=== PATIENT | female | born 1955 | race Caucasian/White ===

== ENCOUNTER 2017-05-06 23:39 | Inpatient (IN) | payer MEDICAID ==
[~2017-05-06] VITALS: Ht 157.5 cm; Wt 65.4 kg
[2017-05-06 23:59] VITALS: Ht 157.5 cm; Wt 65.4 kg
[2017-05-07] VITALS (7 sets, daily range): BP systolic 136–168; BP diastolic 50–68
[2017-05-07 00:53] LABS: BASOPHIL % 0.7 % (0-2); PLATELET COUNT 317 x10^3mcL (130-400)
[2017-05-07 00:55] LABS: RED CELL DISTRIBUTION WIDTH 15.3 % (11.5-14.5)
[2017-05-07 01:12] LABS: CALCIUM 8.3 mg/dL (8.5-10.1); CARBON DIOXIDE 28.1 mmol/L (21-32); CREATININE SERUM 3.2 mg/dL (0.6-1.0); POTASSIUM SERUM 3.7 mmol/L (3.5-5.1)
[2017-05-07] MEDS ORDERED: NOR10 (01:14)
[2017-05-07] MEDS ORDERED: COZAAR25 M1 PO (01:14)
[2017-05-07] MEDS ORDERED: FUROSEMIDE40 MG PO (01:14)
[2017-05-07] MEDS ORDERED: NOR10 PO (01:14)
[2017-05-07] MEDS ORDERED: SYLVANT100 MG IV (01:15)
[2017-05-07] MEDS ORDERED: LANTUS SOLOS100 U/M1 SQ (01:15)
[2017-05-07 01:17] LABS: BILIRUBIN TOTAL 0.41 mg/dL (0.20-1.00); TOTAL PROTEIN, SERUM 6.9 g/dL (6.4-8.2)
[2017-05-07 01:19] LABS: ALBUMIN 2.7 g/dL (3.4-5.0)
[2017-05-07 01:33] LABS: CK-MB 7.5 ng/mL (0-3.6)
[2017-05-07 02:52] LABS: CHOLESTEROL/HDL RATIO 3.5; MAGNESIUM 1.6 mg/dL (1.8-2.4); PHOSPHOROUS 2.9 mg/dL (2.5-4.9)
[2017-05-07 02:58] LABS: T3 TOTAL 1.13 ng/mL
[2017-05-07 03:00] LABS: FREE T4 1.35 ng/dL (0.76-1.46); FREE THYROXINE INDEX 3.3 ug/dL (1.4-4.5); T4(THYROXINE) 9.3 ug/dL (4.7-13.3)
[2017-05-07 06:07] LABS: UA SPECIFIC GRAVITY 1.015 (1.005-1.035); microscopic required? YES; urine erythrocyte TRACE (NEGATIVE)
[2017-05-08 04:10] VITALS: BP 145/50
[2017-05-08 06:21] LABS: BASOPHIL % 0.7 % (0-2); PLATELET COUNT 317 x10^3mcL (130-400)
[2017-05-08 06:24] LABS: RED CELL DISTRIBUTION WIDTH 14.8 % (11.5-14.5)
[2017-05-08 06:42] LABS: CALCIUM 8.3 mg/dL (8.5-10.1); CARBON DIOXIDE 31.2 mmol/L (21-32); CREATININE SERUM 2.6 mg/dL (0.6-1.0); PHOSPHOROUS 3.6 mg/dL (2.5-4.9); POTASSIUM SERUM 3.1 mmol/L (3.5-5.1)
[2017-05-08 11:00] VITALS: BP 131/51
[2017-05-08 14:26] VITALS: BP 127/49
[2017-05-08 17:57] VITALS: BP 123/57
[2017-05-08 21:17] VITALS: BP 131/54
[2017-05-09 05:54] VITALS: BP 131/53
[2017-05-09 07:03] LABS: BASOPHIL % 0.5 % (0-2); PLATELET COUNT 236 x10^3mcL (130-400)
[2017-05-09 07:21] LABS: CALCIUM 8.3 mg/dL (8.5-10.1); CARBON DIOXIDE 32.5 mmol/L (21-32); CREATININE SERUM 2.2 mg/dL (0.6-1.0); MAGNESIUM 1.7 mg/dL (1.8-2.4); PHOSPHOROUS 3.5 mg/dL (2.5-4.9); POTASSIUM SERUM 3.5 mmol/L (3.5-5.1)
[2017-05-09 07:36] LABS: RED CELL DISTRIBUTION WIDTH 14.6 % (11.5-14.5)
[2017-05-09 10:06] VITALS: BP 149/60
[2017-05-09] MEDS ORDERED: TAMIFLU6 MG/ML PO (14:56)
[2017-05-09] MEDS ORDERED: NEP PO (14:57)
[2017-05-09 18:00] VITALS: BP 131/48
[2017-05-09 20:37] VITALS: BP 131/53
[2017-05-10 05:42] VITALS: BP 136/53
[2017-05-10 07:47] LABS: BASOPHIL % 0.6 % (0-2); PLATELET COUNT 257 x10^3mcL (130-400)
[2017-05-10 08:02] LABS: CARBON DIOXIDE 30.8 mmol/L (21-32); CREATININE SERUM 3.2 mg/dL (0.6-1.0)
[2017-05-10 08:23] LABS: RED CELL DISTRIBUTION WIDTH 15.1 % (11.5-14.5)
[2017-05-10 09:07] VITALS: BP 131/90
[2017-05-10 10:49] LABS: PHOSPHOROUS 4.5 mg/dL (2.5-4.9)
[2017-05-10 13:32] VITALS: BP 118/73
[2017-05-10 21:05] VITALS: BP 132/37
[2017-05-11 09:05] VITALS: BP 130/59
[2017-05-11 09:34] VITALS: BP 132/37
== END 2017-05-11 14:25 | disposition home health service (06) | DRG 113 ==
LOC: ED 23:39 → DU 05-07 02:10 → EDBEDREQ 05-07 02:26 → DU 05-07 02:58 → MU 05-09 09:08
PROVIDERS: Emergency Medicine; Family Medicine; Internal Medicine Nephrology
DX: J11.1 Influenza due to unidentified influenza virus with other respiratory manifestations (principal); N17.0 Acute kidney failure with tubular necrosis; I12.0 Hypertensive chronic kidney disease with stage 5 chronic kidney disease or end stage renal disease; N18.6 End stage renal disease; D68.69 Other thrombophilia; E11.59 Type 2 diabetes mellitus with other circulatory complications; E11.65 Type 2 diabetes mellitus with hyperglycemia; J84.10 Pulmonary fibrosis, unspecified; E83.42 Hypomagnesemia; K59.00 Constipation, unspecified; E03.9 Hypothyroidism, unspecified; D64.9 Anemia, unspecified; Z99.2 Dependence on renal dialysis; Z68.27 Body mass index [BMI] 27.0-27.9, adult
CPT/HCPCS: 83880; 84439; 87804; 94150; J1644; J1815; J2405; J3475; J7030; J7620; Q0092

== ENCOUNTER 2018-06-29 02:13 | Inpatient (IN) | payer MEDICAID ==
[~2018-06-29] VITALS: Ht 152.4 cm; Wt 71.8 kg
[~2018-06-29 02:13] MED LIST: AURYXIA1 GM PO; COZAAR25 M1 PO; FERROUS SULFAT325 M2; FUROSEMIDE40 MG PO; HUMALOG100 UNIT/1; LANTUS SOLOS100 U/M1 SQ; NEP PO; NOR10; NOR10 PO; PHOS PO; SIMVASTATIN40 M1; SYLVANT100 MG IV; TAMIFLU6 MG/ML PO
[2018-06-29 02:21] VITALS: Ht 152.4 cm; Wt 71.8 kg
--- NOTE | 2018-06-29 02:37 | NUR ---
RECEIVED A 63 Y/O F FOR GENERALIZED ABDOMINAL PAIN AND BILATERAL LEG SWELLING SINCE FRIDAY. PT WAS NOT ABLE TO FINISH HER DIALYSIS LAST FRIDAY AND WAS SENT TO [facility]. PT ALSO REPORTS ORTHOPNEA. PT AAOX4. RESP EVEN AND UNLABORED. REPORTS ABDOMINAL PAIN 11/21. FAMILY AT THE BEDSIDE. WILL CONTINUE TO MONITOR FOR SAFETY
--- NOTE | 2018-06-29 02:48 | NUR ---
DR LOMELI AT THE BEDSIDE FOR MSE
[2018-06-29 03:14] LABS: BASOPHIL % 0.4 % (0-2); UA SPECIFIC GRAVITY 1.015 (1.005-1.035); microscopic required? YES; urine erythrocyte TRACE (NEGATIVE)
[2018-06-29 03:46] LABS: PLATELET COUNT 89 x10^3mcL (130-400); RED CELL DISTRIBUTION WIDTH 21.8 % (11.5-14.5)
[2018-06-29 03:56] LABS: rbc morphology (normal/abnorm) ABNORMAL (NORMAL)
[2018-06-29 04:03] LABS: BILIRUBIN TOTAL 1.28 mg/dL (0.20-1.00); CALCIUM 9.7 mg/dL (8.5-10.1); CARBON DIOXIDE 33.3 mmol/L (21-32); POTASSIUM SERUM 4.3 mmol/L (3.5-5.1)
[2018-06-29 04:09] LABS: CREATININE SERUM 6.1 mg/dL (0.6-1.0)
--- NOTE | 2018-06-29 04:22 | NUR ---
PT RESTING IN ED GURNEY IN POSITION OF COMFORT. PT IS A/O X4. PT RESPS ARE E/U. NO ACD NOTED
--- NOTE | 2018-06-29 04:58 | NUR ---
GAVE PT REPORT TO ELADIO STARK ON TELE FLOOR TO ASSUME PRIMARY CARE ONCE PT IS ADMITTED UPSTAIRS TO ROOM 207B.
--- NOTE | 2018-06-29 05:12 | NUR ---
PT MEDICATED PER EMAR ORDERS OF LASIX 40MG IVP.
--- NOTE | 2018-06-29 05:39 | NUR ---
PT WHEELED OUT OF ED VIA ED BRANT BY MYSELF AND STEPHEN STARK TO TELE FLOOR ROOM 207B WHERE PT WILL BE FOR FURTHER CARE. NO INCIDENCE NOTED
--- NOTE | 2018-06-29 05:48 | NUR ---
PT RECIEVED FROM ED VIA GUERNEY, PT IS DROWSY AND ALERT TO PERSON HOWEVER DUE TO ED GIVEN ATIVAN BEFORE COMING TO THE FLOOR PT IS UNABLE TO ANSWER QUESTIONS DUE TO DROWSINESS. NO JVD NOTED. PT HAS +1 PITTING EDEMA TO THE BLE, LEFT AV SHUNT NOTED ON THE LEFT UPPER EXTREMITY, SCDS IN THE ROOM. ABD IS ROUND AND SOFT, DISTENDED, LUNGS ARE CLEAR TO THE UPPER LOBES BUT DIMINISHED BILATERAL BASES, SKIN IS INTACT, UNABLE TO ASSESS LAST BM OR VOID, TELE [address] WITH NSR WITH PVC'S, PT IS ON 2L O2 VIA NC, PULSES ARE PALPABLE AND MODERATE TO THE BUE AND WEAK TO THE BLE, GENERALIZED WEAKNESS NOTED, IV 22 G TO THE RIGHT AC. SAFETY AND COMFORT MEASURES IMPLEMENTED, CALL LIGHT WITHIN REACH, WILL ENDORSE CONTINUITY OF CARE TO THE ONCOMING RN.
[2018-06-29 05:53] VITALS: BP 114/54
[2018-06-29 06:54] LABS: CHOLESTEROL/HDL RATIO 3.4
--- NOTE | 2018-06-29 08:00 | NUR ---
LETHARGIC AND ORIENTED TO PERSON,OTHERS AND PLACE, DENIES ANY PAIN. ASSIST TO BR. TELE # 16 SR W PVC'S. NO S/S PAIN. NS 10 CC HOUR INFUSING TO RT AC. BREAKFAST AT BEDSIDE. CALL LIGHT WITHIN REACH.
[2018-06-29 09:22] VITALS: BP 120/60
--- NOTE | 2018-06-29 13:49 | NUR ---
RESTING COMFORTABLY. ON02 2L NC. CALL LIGHT GREGORIO HOPKINS.
[2018-06-29 14:13] VITALS: BP 142/49
--- NOTE | 2018-06-29 15:25 | NUR ---
HD NURSE TO PERFORM HEMODIALYSIS.
[2018-06-29 16:43] VITALS: BP 108/48
--- NOTE | 2018-06-29 19:25 | NUR ---
PT RECEIVED A/O X4, EQUATORIAL GUINEAN SPEAKING, ABLE TO MAKE NEEDS KNOWN. TELE #16, DENIES ANY CP/PRESSURE AT THIS TIME. PULSES PALPABLE, BLE EDEMA PRESENT. LUNG SOUNDS DIM TO DIOGO BASES, BREATHING IS EVEN AND UNLABORED ON 2L NC, NO RESP DISTRESS NOTED. ABD SOFT AND ROUND, BOWEL TONES ACTIVE X4 QUAD, ADMITS TO N/V, EMESIS BAG PROVIDED, WILL MEDICATE WITH PRN ANTIEMETIC. VOIDS FREELY, BRP. PT HAS HD TuThSAT. AV SHUNT TO JORGE WITH GOOD BRUIT AND THRILL, DRESSING CDI. LAST HD-TODAY, 3L OUTPUT. GENERALIZED WEAKNESS, AMBULATORY. SKIN IS WARM AND DRY, INTACT. PT DENIES ANY PAIN AT THIS TIME. IVF INFUSING WELL TO RAC, SITE WNL. BED IN LOWEST SETTING, SIDE RAILS UP X2, CALL LIGHT WITHIN REACH. WILL CONT TO MONITOR.
--- NOTE | 2018-06-29 19:35 | NUR ---
PT C/O N/V, PRN ZOFRAN IVP GIVEN ORDERED. NO ACUTE DISTRESS NOTED. WILL CONT TO MONITOR.
--- NOTE | 2018-06-29 19:48 | NUR ---
PT HAD NAUSEA AT CHANGE OF SHIFT. NO C/O PAIN. NO SOB. NOC SHIFT TO MEDICATE FOR NAUSEA. GAVE BAG. CALL LIGHT WITHIN REACH. HD TODAY 3L OUT. TOLERATED WELL. MINIMAL ASSIST W BRP.
[2018-06-29 21:22] VITALS: BP 129/55
--- NOTE | 2018-06-29 23:28 | NUR ---
HD ORDERED FOR TOMORROW AM. DIALYSIS NURSE-BRAGA CALLED, CALL BACK NUMBER AND VOICE MESSAGE LEFT.
--- NOTE | 2018-06-30 01:08 | NUR ---
RECEIVED CALL BACK FROM OMI-DIALYSIS NURSE. OMI MADE AWARE THAT PT HAS AN ORDER FOR HD IN THE AM.
--- NOTE | 2018-06-30 03:50 | NUR ---
PT C/O 8 HEADACHE, PRN TYLENOL GIVEN ORDERED. PT ALSO C/O ITCHINESS, DR SCHOFIELD MADE AWARE. AWAITING ORDERS AT THIS TIME. NO ACUTE DISTRESS NOTED. CALL LIGHT WITHIN REACH. WILL CONT TO MONITOR.
--- NOTE | 2018-06-30 04:21 | NUR ---
PT C/O ITCHINESS, BENADRYL PO GIVEN ORDERED. NO ACUTE DISTRESS NOTED. WILL CONT TO MONITOR.
[2018-06-30 05:41] VITALS: BP 135/87
[2018-06-30 06:19] LABS: IRON 35 ug/dL (50-170)
[2018-06-30 06:23] LABS: TOTAL IRON BINDING CAPACITY 150 ug/dL (250-450)
[2018-06-30 06:25] LABS: CALCIUM 8.9 mg/dL (8.5-10.1); CARBON DIOXIDE 32.6 mmol/L (21-32); POTASSIUM SERUM 4.6 mmol/L (3.5-5.1)
[2018-06-30 06:26] LABS: CREATININE SERUM 4.6 mg/dL (0.6-1.0)
--- NOTE | 2018-06-30 06:33 | NUR ---
PT SLEPT WELL THROUGHOUT THE EVENING. BREATHING IS EVEN AND UNLABORED, NO RESP DISTRESS NOTED. PT DENIES HAVING ANY PAIN AT THIS TIME. PT REPORTS GOOD RELIEF FROM BENADRYL, PT DENIES HAVING ITCHINESS. NO EPISODES OF N/V NOTED. ALL NEEDS MET. IV TO RAC, PATENT AND INTACT, SITE WNL. ALL NEEDS MET. CALL LIGHT WITHIN REACH. WILL ENDORSE CARE TO AM NURSE.
[2018-06-30 06:34] LABS: BASOPHIL % 0.4 % (0-2); PLATELET COUNT 70 x10^3mcL (130-400); RED CELL DISTRIBUTION WIDTH 23.4 % (11.5-14.5)
--- NOTE | 2018-06-30 07:15 | NUR ---
RECEIVED PT FROM INSURANCE TERRITORY MANAGER. PT AWAKE, ALERT. A/OX 4. PT ON 2L NC, NO RESP DISTRESS NOTED. LUNG SOUNDS DIMINSHED AT THE BASES. PT ON TELE # 16. DENIES CHEST PAIN. ACTIVE BOWEL SOUNDS NOTED. PT AMBULATORY WITH BRP. PT HAS JORGE AV SHUNT AND IV ACCESS TO RIGHT AC. C/D/I. PERIPHERAL PULSES PALPABLE, SLIGHT EDEMA NOTED TO BLE. PT CALM AND COOPERATIVE AT THIS TIME. DENIES NAUSEA OR VOMITING. SAFETY MEASURES IN PLACE. BED LOW AND LOCKED. CALL LIGHT WITHIN REACH.
--- NOTE | 2018-06-30 07:20 | NUR ---
PT IN NO ACUTE DISTRESS. BEDSIDE REPORT GIVEN TO KEIRY STARK. ALL QUESTIONS AND CONCERNS ADDRESSED.
[2018-06-30 08:10] VITALS: BP 127/50
--- NOTE | 2018-06-30 09:00 | NUR ---
IV REMOVED FROM LEFT FOREARM WITH CATHETER INTACT. PER PT IV WAS PAINFUL TO THE TOUCH. MILD ERRYTHEMA NOTED, NO BLEEDING OR SWELLING NOTED. WILL ATTEMPT NEW IV.
--- NOTE | 2018-06-30 12:45 | NUR ---
PT RECEIVING HEMODIALYSIS AT THIS TIME. PT FEELING ANXIOUS WITH HD. HD NURSE AWARE, PER HD NURSE HD WILL BE SHORTER TODAY AND PT WILL HAVE HD AGAIN TOMORROW DUE TO NOT TOLERATING TREATMENT WELL. WILL CONT TO MONITOR.
[2018-06-30 12:52] VITALS: BP 120/51
--- NOTE | 2018-06-30 13:50 | NUR ---
PT FINISHED WITH HEMODIALYSIS, NO ACUTE DISTRESS OR DISCOMFORT NOTED AT THIS TIME. 3 LITERS OUT PER HD NURSE, BP 146/60. WILL CONTINUE TO MONITOR.
--- NOTE | 2018-06-30 13:58 | NUR ---
ATTEMPTED FOR PHYSICAL THERAPY EVAL, PATIENT ON DIALYSIS. TO BE SEEN THE FOLLOWING DAY
--- NOTE | 2018-06-30 15:33 | NUR ---
NEW IV STARTED RIGHT HAND 22G. PT ALLERGIC TO LATEX. IV WITH PAPER TAPE. C/D/I
--- NOTE | 2018-06-30 17:26 | NUR ---
DUE MEDS ADMINISTERED. PT AWAKE, ALERT SITTING ON THE BED IN NO ACUTE DISTRESS OR DISCOMFORT. SAFETY MAINTAINED.
[2018-06-30 17:36] VITALS: BP 131/51
--- NOTE | 2018-06-30 18:25 | NUR ---
PT RESTING COMFORTABLY IN BED AT THIS TIME. NO ACUTE DISTRESS OR DISCOMFORT NOTED. ALL NEEDS TENDED TO THROUGHOUT SHIFT. PT STABLE AT THIS TIME. WILL CONTINUE TO MONITOR AND ENDORSE TO SEWER BRICKLAYER. SAFETY MEASURES MAINTAINED.
--- NOTE | 2018-06-30 18:45 | NUR ---
PT COMPLAINING OF CONSTIPATION AT THIS TIME. DR SCHOFIELD AWARE, WILL ORDER NEW MEDICATION FOR BOWEL MOVEMENT.
--- NOTE | 2018-06-30 19:12 | NUR ---
PT RECEIVED A/O X4, AFGHAN SPEAKING, ABLE TO MAKE NEEDS KNOWN. TELE #16, DENIES ANY CP/PRESSURE AT THIS TIME. PULSES PALPABLE, BLE EDEMA PRESENT. LUNG SOUNDS DIM TO DIOGO BASES, BREATHING IS EVEN AND UNLABORED ON 2L NC, NO RESP DISTRESS NOTED. ABD SOFT AND ROUND, BOWEL TONES ACTIVE X4 QUAD, DENIES N/V. VOIDS FREELY, BRP. PT HAS HD TuThSAT. AV SHUNT TO JORGE WITH GOOD BRUIT AND THRILL, DRESSING CDI. LAST HD-TODAY, 3L OUTPUT. GENERALIZED WEAKNESS, AMBULATORY. SKIN IS WARM AND DRY, INTACT. PT DENIES ANY PAIN AT THIS TIME. IVF INFUSING WELL TO , SITE WNL. BED IN LOWEST SETTING, SIDE RAILS UP X2, CALL LIGHT WITHIN REACH. WILL CONT TO MONITOR.
[2018-06-30 20:24] VITALS: BP 135/48
--- NOTE | 2018-06-30 20:43 | NUR ---
DULCOLAX SUPPOSITORY GIVEN ORDERED FOR CONSTIPATION. PT TOLERATED WELL. WILL CONT TO MONITOR.
--- NOTE | 2018-06-30 22:05 | NUR ---
PT HAD BM X1, SMALL, FORMED AND HARD. NO ACUTE DISTRESS NOTED. WILL CONT TO MONITOR.
--- NOTE | 2018-06-30 22:24 | NUR ---
PT HAS DIALYSIS ORDERS FOR TOMORROW. BRAGA-DIALYSIS NURSE CALLED, LEFT MESSAGE AND CALL BACK NUMBER.
[2018-07-01 05:51] VITALS: BP 140/53
--- NOTE | 2018-07-01 06:33 | NUR ---
PT SLEPT AT INTERVALS THROUGHOUT THE EVENING. BREATHING IS EVEN AND UNLABORED, NO RESP DISTRESS NOTED. PT DENIES HAVING ANY PAIN AT THIS TIME. ICE CHIPS GIVEN PER PT'S REQUEST. NO ACUTE CHANGES ENCOUNTERED DURING SHIFT. IV TO RH, PATENT AND INTACT. ALL NEEDS MET. CALL LIGHT WITHIN REACH. WILL ENDORSE CARE TO AM NURSE.
[2018-07-01 06:37] LABS: CALCIUM 8.7 mg/dL (8.5-10.1); CARBON DIOXIDE 31.1 mmol/L (21-32); CREATININE SERUM 3.3 mg/dL (0.6-1.0); POTASSIUM SERUM 4.4 mmol/L (3.5-5.1)
[2018-07-01 06:38] LABS: MAGNESIUM 1.9 mg/dL (1.8-2.4)
[2018-07-01 07:02] LABS: BASOPHIL % 0.3 % (0-2); PLATELET COUNT 67 x10^3mcL (130-400); RED CELL DISTRIBUTION WIDTH 22.9 % (11.5-14.5)
--- NOTE | 2018-07-01 08:00 | NUR ---
SHIFT ASSESSMENT DONE. PATIENT A/A/OX3. TELUGU SPEAKING. BREATHING SOUND CLEAR DIOGO. O2 SAT 98% ON 2L VIA N/C. TELE#16; SA; HR = 63. DENIED CHEST PAIN. EDEMA 1+ BLE. IVHL'D TO R HAND. AMBULATORY. GAIT STEADY. WOULD HAVE DIALYSIS TODAY PER ORDER. AV SHUNT TO LUE THRILL(+)/BRUIT(+). DENIED PAIN. C/O NO BM X 2 DAYS. DULCOLAX 5MG AND COLACE 100MG PO WOULD BE GIVEN PER ORDER. CALL LIGHT IN REACH.
[2018-07-01 09:31] VITALS: BP 139/52
--- NOTE | 2018-07-01 12:30 | NUR ---
DIALYSIS DONE. 2.8L OF FLUID OUT. PATIENT TOLERATED LUNCH WELL. AMBULATORY. NO RESP DISTRESS ON RA.
[2018-07-01 13:14] VITALS: BP 122/61
--- NOTE | 2018-07-01 14:20 | NUR ---
PATIENT C/O IV PAIN AFTER ZITHROMAX IVPB AT 250CC/HR. IV PATENT; SITE CLEAN. NO S/S OF INFILTRATION. REDUCED RATE TO 125CC/HR. CONTINUE MONITOT.
--- NOTE | 2018-07-01 14:30 | NUR ---
PATIENT WAS CRYING AND REFUSED IVPB OF ZITHROMAX. IV RADHA LARA NP PAGED AND REPORTED.
--- NOTE | 2018-07-01 14:47 | NUR ---
PHYSICAL THERAPY NOTE ATTEMPTED FOR PHYSICAL THERAPY AYANNA PT ON DIALYSIS AT THIS TIME.
--- NOTE | 2018-07-01 15:55 | NUR ---
SOLITARIO LARA CALLED BACK -- PATIENT HARDIK BE D/C'D TO HOME TODAY. SHE WOULD HAVE Rx OF ORAL ABX TO HOME.
--- NOTE | 2018-07-01 16:17 | NUR ---
PATIENT WALKED WITH PHYSICAL THERAPIST IN [address]. PER REPORT OF P.T. -- O2 SAT STARTED ON 93% ON RA, AFTER WALKED IN HALLWAY, PATIENT'S O2 SAT DROPPED TO 84% ON RA. WOULD REPORTED TO SOLITARIO BERMEO.
[2018-07-01 16:31] VITALS: BP 115/35
--- NOTE | 2018-07-01 18:48 | NUR ---
O2 SAT 98% ON 2L VIA N/C. NO SOB. HAD HARD BM X2 VIA BRP. VOID X5. TOELRTED DIET WELL. ENDORSED CARE TO [facility] NURSE.
--- NOTE | 2018-07-01 19:20 | NUR ---
RECEIVED PT RESTING IN BED, AOX4, DENIES ORDONEZ/DIZZINESS. MEDSURG PT, DENIES CP. OULSES PALPABLE BILAT, DENIES NUMBNESS/TINGLING IN FEET. 1+ PITTING EDEMA BLE, ON LASIX. RESP EVEN AND UNLABORED ON RA, DENIES SOB. ABD SOFT, ROUND, DENIES PAIN A/ PALPATION. PT HAD SMALL HARD BM IN DAYSHIFT, WILL CONTINUE TO MONITOR OUTPUT. PT BRP, SLOW/STEADY GAIT. PT HAS HD TODAY 3/20 W/ 2.8L OUT (ONLY WATER). PT HAS AV FISTULA TO JORGE OUTDOOR EDUCATION TEACHER. DENIES PAIN AT SITE. GENERALIZED WEAKNESS, AMBULATORY. SKIN INTACT. DENIES PAIN. IV SITE RT HAND PATENT, NO REDNESS, SWELLING OR PAIN NOTED. ALL COMFORT AND SAFETY MEASURES PROVIDED FOR, CALL LIGHT WITHIN REACH, BED IN LOWEST POSITION, WILL CONTINUE TO MONITOR.
[2018-07-01 20:41] VITALS: BP 135/56
--- NOTE | 2018-07-01 22:15 | NUR ---
PT C/O ITCHING ALL OVER BODY, NO RASH/REDNESS NOTED. WILL MEDICATE W/ BENADYRL FOR ITCHY RELIEF. DR REYES MADE AWARE. WILL CONTINUE TO MONITOR.
--- NOTE | 2018-07-02 05:00 | NUR ---
PT RESTED IN INTERVALS DURING SHIFT, NO ACUTE CHANGES OCCURRING OVERNIGHT. PT REPORTS ANXIETY AND PAIN IN BLE AROUND 0330; SPOKE TO DR. TRUONG ABOUT PT COMPLAINTS. RECEIVED ORDERS FOR TRAZADONE 50MG; PT RESTING AT THIS TIME, NO S/S OF PAIN NOTED AT THIS TIME. PT DENIES CONSTIPATION DURING SHIFT, HAVING TWO SEPARATE BM. DENIES PAIN W/ BM. ALL COMFORT AND SAFETY MEASURES PROVIDED FOR, CALL LIGHT WITHIN REACH, BED IN LOWEST POSITION, WILL CONTINUE TO MONITOR.
[2018-07-02 06:10] VITALS: BP 110/44
[2018-07-02 07:05] LABS: BASOPHIL % 0.6 % (0-2)
[2018-07-02 07:07] LABS: CALCIUM 8.4 mg/dL (8.5-10.1); CARBON DIOXIDE 31.7 mmol/L (21-32); POTASSIUM SERUM 4.7 mmol/L (3.5-5.1)
[2018-07-02 07:09] LABS: PLATELET COUNT 70 x10^3mcL (130-400); RED CELL DISTRIBUTION WIDTH 22.1 % (11.5-14.5)
--- NOTE | 2018-07-02 07:40 | NUR ---
RECEIVED PT IN BED. ASSESSED AND DOCUMENTED. DENIES PAIN THIS TIME. SAFTEY PRECAUTIONS ARE IN PLACE. WILL MONITOR.
[2018-07-02 08:18] LABS: CREATININE SERUM 4.7 mg/dL (0.6-1.0)
[2018-07-02 08:52] LABS: rbc morphology (normal/abnorm) ABNORMAL (NORMAL); tear drop cell (dacryocyte) 1+
[2018-07-02] MEDS ORDERED: ZITHROMAX500 MG PO (09:55)
[2018-07-02 10:00] VITALS: BP 116/49
[2018-07-02 14:25] VITALS: BP 116/49
[2018-07-02 14:30] VITALS: BP 116/49
--- NOTE | 2018-07-02 14:45 | NUR ---
DISCHARGE INSTRUCTIONS AND PRESCRIPTIONS GIVEN. PB SIGNED AND SENT WITH PT. IV REMOVED AND DRESSING APPLIED. PT DENIES ANY PAIN. HOSPICE PHYSICIAN WHEELED PT DOWN TO LOBBY ACCOMPANIED WITH PT'S FAMILY. PT DC HOME.
== END 2018-07-02 15:05 | disposition home or self-care (01) | DRG 139 ==
LOC: ED 02:13 → MU 04:41 → DU 04:41 → MU 07-01 11:55
PROVIDERS: Emergency Medicine; Internal Medicine; Internal Medicine Nephrology; ADMIT General Practice
DX: J18.1 Lobar pneumonia, unspecified organism (principal); N17.0 Acute kidney failure with tubular necrosis; I13.2 Hypertensive heart and chronic kidney disease with heart failure and with stage 5 chronic kidney disease, or end stage renal disease; N18.6 End stage renal disease; E11.22 Type 2 diabetes mellitus with diabetic chronic kidney disease; D69.59 Other secondary thrombocytopenia; E44.0 Moderate protein-calorie malnutrition; E11.65 Type 2 diabetes mellitus with hyperglycemia; I50.33 Acute on chronic diastolic (congestive) heart failure; R06.03 Acute respiratory distress; D63.1 Anemia in chronic kidney disease; F15.21 Other stimulant dependence, in remission; Z99.2 Dependence on renal dialysis; Z79.4 Long term (current) use of insulin; Z68.28 Body mass index [BMI] 28.0-28.9, adult; Z87.891 Personal history of nicotine dependence; Z79.84 Long term (current) use of oral hypoglycemic drugs
CPT/HCPCS: 82962; 83880; 90658; 90732; J0456; J0885-EC; J1885; J1940; J2060; J2405; J7030; Q0092; Q0163